=== PATIENT | male | born 1995 | race African-American/Black ===

== ENCOUNTER 2017-03-08 09:16 | Emergency (ER) | payer BC ==
[~2017-03-08] VITALS: Ht 180.3 cm; Wt 70.3 kg
[2017-03-08 09:42] VITALS: BP 130/75
[2017-03-08] MEDS ORDERED: IBUPROFEN 600 MG TABLET PO ONE ×2 (10:09→10:30)
[2017-03-08] MEDS ORDERED: predniSONE 20 MG TABLET ONE (10:09)
[2017-03-08] MEDS ORDERED: ALBUTEROL FS 2.5 MG/3 ML VIAL.NEB ONE (10:17)
[2017-03-08] MEDS ORDERED: IPRATROPIUM NEB FS 0.5 MG/2.5 ML AMPUL.NEB ONE (10:17)
--- NOTE | 2017-03-08 10:17 | NUR ---
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
[2017-03-08] MEDS ORDERED: predniSONE 20 MG TABLET PO ONE (10:30)
[2017-03-08] MEDS ORDERED: IPRATROPIUM NEB FS 0.5 MG/2.5 ML AMPUL.NEB NEB ONE (10:30)
[2017-03-08] MEDS ORDERED: ALBUTEROL FS 2.5 MG/3 ML VIAL.NEB NEB ONE (10:30)
== END 2017-03-08 12:48 | disposition home or self-care (01) ==
LOC: ER 09:21
DX: J11.1 Influenza due to unidentified influenza virus with other respiratory manifestations (principal); F17.200 Nicotine dependence, unspecified, uncomplicated
CPT/HCPCS: 71010; 87804; 94640; 99285; A4606; J7512; Z7610; 87400